=== PATIENT | male | born 1950 | race Caucasian/White ===

== ENCOUNTER 2022-08-20 11:39 | Emergency (ER) | payer OTHER ==
[~2022-08-20] VITALS: Ht 175.3 cm; Wt 103.4 kg
[2022-08-20 13:25] VITALS: BP 162/72
[2022-08-20] MEDS ORDERED: CEPH500B PO (13:45)
[2022-08-20] MEDS ORDERED: IBUP-1493 PO (13:46)
== END 2022-08-20 14:25 | disposition home or self-care (01) ==
LOC: EDH 11:39
DX: S50.852A Superficial foreign body of left forearm, initial encounter (principal); W45.0XXA Nail entering through skin, initial encounter; Y93.89 Activity, other specified; Y92.89 Other specified places as the place of occurrence of the external cause; Y99.8 Other external cause status
CPT/HCPCS: 73090